=== PATIENT | male | born 1985 | race Hispanic/Latino ===

== ENCOUNTER 2017-08-03 22:36 | Emergency (ER) | payer OTHER ==
[~2017-08-03] VITALS: Ht 162.6 cm; Wt 138.3 kg
[~2017-08-03 22:36] MED LIST: AMLODIPINE BESY10 MG PO; ASPIRIN81 MG PO; CEFUROXIME250 MG PO; CELEBREX100 MG PO; CIPRO500 MG PO; CYCLOBENZAPRINE5 MG PO; HYDROCODONE-ACE15 M2 PO; XANAX0.5 MG PO; XANAX1 MG PO
[2017-08-04 02:02] VITALS: BP 167/86
== END 2017-08-04 02:04 | disposition home or self-care (01) ==
LOC: ER 22:36
DX: R42 Dizziness and giddiness (principal); E86.0 Dehydration
CPT/HCPCS: 93005; 99282

== ENCOUNTER 2017-08-27 21:58 | Emergency (ER) | payer OTHER ==
[~2017-08-27] VITALS: Ht 157.5 cm; Wt 122.5 kg
[2017-08-27] MEDS ORDERED: KETOROLAC TROMETHAMINE 30 MG/ML VIAL IV STA (22:25)
[2017-08-27] MEDS ORDERED: ONDANSETRON HCL INJ 2 MG/ML VIAL IV STA (22:25)
[2017-08-27] MEDS ORDERED: MECLIZINE HCL 12.5 MG TAB PO ONE (22:30)
[2017-08-27 23:48] VITALS: BP 145/70
== END 2017-08-27 23:30 | disposition home or self-care (01) ==
LOC: FSED 21:58
DX: R42 Dizziness and giddiness (principal); H81.11 Benign paroxysmal vertigo, right ear; I10 Essential (primary) hypertension
CPT/HCPCS: 96374; 99283; J1885; J2405

== ENCOUNTER 2018-10-31 18:32 | Emergency (ER) | payer SELFPAY ==
[~2018-10-31] VITALS: Ht 157.5 cm; Wt 122.5 kg
[2018-10-31] MEDS ORDERED: SODIUM CHLORIDE 0.9% 1000ML 1,000 ML IV STA (18:55)
[2018-10-31] MEDS ORDERED: MORPHINE SULFATE INJ 4 MG/ML INJ 1ML IV ONE (19:15)
[2018-10-31] MEDS ORDERED: ONDANSETRON HCL INJ 2MG/ML 2ML 2 MG/ML VIAL IV ONE (19:15)
[2018-10-31] MEDS ORDERED: HYDRALAZINE HCL 20 MG/ML VIAL IV ONE (19:30)
[2018-10-31 20:53] LABS: BASOPHILS # (AUTO) 0.1 (0.0-0.1); BASOPHILS % 1.4 % (0.0-1.0); EOSINOPHILS # (AUTO) 0.4 (0.0-0.4); EOSINOPHILS % 6.3 % (0.0-6.0); HEMATOCRIT 52.3 % (38.2-49.6); HEMOGLOBIN 17.7 g/dL (14.0-18.0); LYMPHOCYTES # (AUTO) 1.7 (1.0-3.2); LYMPHOCYTES % 28.9 % (18.0-39.1); MEAN CORPUSCULAR HGB CONC 33.8 g/dL (31-35); MEAN CORPUSCULAR VOLUME 88.6 fL (81-99); MONOCYTES # (AUTO) 0.4 (0.2-0.8); MONOCYTES % 7.5 % (4.4-11.3); NEUTROPHILS # (AUTO) 3.3 (2.1-6.9); NEUTROPHILS % 55.4 % (38.7-80.0); PLATELET COUNT 286 x10e3/uL (140-360); RED CELL DISTRIBUTION WIDTH 13.7 % (11.7-14.4)
[2018-10-31 21:08] LABS: ALANINE AMINOTRANSFERASE 132 IU/L (0-55); ALBUMIN 4.2 g/dL (3.5-5.0); ALKALINE PHOSPHATASE 118 IU/L (40-150); ANION GAP 17.1 mmol/L (8-16); BLOOD UREA NITROGEN 6 mg/dL (7-26); BUN/CREATININE RATIO 7 (6-25); CALCIUM 9.7 mg/dL (8.4-10.2); CARBON DIOXIDE 26 mmol/L (22-29); CHLORIDE 98 mmol/L (98-107); CREATININE, SERUM 0.87 mg/dL (0.72-1.25); EST GLOMERULAR FILTRATION RATE > 60 ML/MIN (60-); GLUCOSE 88 mg/dL (74-118); LIPASE 28 U/L (8-78); POTASSIUM 3.1 mmol/L (3.5-5.1); SODIUM 138 mmol/L (136-145)
[2018-10-31 21:09] LABS: CLARITY,URINE CLEAR (CLEAR); COLOR,URINE YELLOW (YELLOW)
[2018-10-31 21:10] LABS: BILIRUBIN,URINE NEGATIVE (NEGATIVE); KETONES,URINE NEGATIVE (NEGATIVE); LEUKOCYTE ESTERASE ,URINE TRACE (NEGATIVE); NITRITE,URINE NEGATIVE (NEGATIVE); PROTEIN,URINE DIPSTICK NEGATIVE (NEGATIVE); URINE UROBILINOGEN 0.2 mg/dL (0.2 - 1)
[2018-10-31] MEDS ORDERED: SODIUM CHLORIDE 0.9% 50ML 50 ML ONE (21:17)
[2018-10-31] MEDS ORDERED: IOPAMIDOL 370 MG/ML 200 ML INFUS..BTL INJ ONE (21:17)
[2018-10-31 21:19] LABS: BACTERIA,URINE RARE /HPF; RBC,URINE 0-5 /HPF (0-5); WBC,URINE (MAN) 0-5 /HPF (0-5)
--- NOTE | 2018-10-31 22:10 | Diagnostic Imaging Report ---
EXAM: CT Abdomen and Pelvis WITH contrast INDICATION: r/o divertic c/o luq pain COMPARISON: Gallbladder ultrasound 02/17/2017 TECHNIQUE: Abdomen and pelvis were scanned utilizing a multidetector helical scanner from the lung base to the pubic symphysis after administration of IV contrast. Coronal and sagittal reformations were obtained. Routine protocol was performed. Scan was performed when during portal venous phase. IV CONTRAST: 100 mL of Isovue-370. ORAL CONTRAST: Water COMPLICATIONS: None RADIATION DOSE: Total DLP: 959.1 mGy*cm Estimated effective dose: (DLP x 0.015 x size factor) mSv Dose modulation, iterative reconstruction, and/or weight based adjustment of the mA/kV was utilized to reduce the radiation dose to as low as reasonably achievable. FINDINGS: LINES and TUBES: None. LOWER THORAX: Unremarkable HEPATOBILIARY: Hepatic steatosis. No focal hepatic lesions. No biliary ductal dilation. GALLBLADDER: Cholecystectomy SPLEEN: No splenomegaly. PANCREAS: No focal masses or ductal dilatation. ADRENALS: No adrenal nodules KIDNEYS/URETERS: Scarring in the mid/inferior right renal pole. Kidneys enhance symmetrically. No hydronephrosis. No solid mass lesions. No stones. GI TRACT: No abnormal distention, wall thickening, or evidence of bowel obstruction. Appendix is normal. PELVIC ORGANS/BLADDER: Unremarkable. LYMPH NODES: No lymphadenopathy. VESSELS: Unremarkable. PERITONEUM / RETROPERITONEUM: No free air or fluid. BONES: Unremarkable. SOFT TISSUES: Unremarkable. IMPRESSION: 1. No acute abnormalities. 2. Hepatic steatosis. 3. Cholecystectomy. 4. Right renal scarring. Signed by: DR. Jeffrey Alex MD on 10/31/2018 10:07 PM
[2018-10-31 22:56] VITALS: BP 162/84
== END 2018-10-31 23:10 | disposition home or self-care (01) ==
LOC: ER 18:32
DX: R10.12 Left upper quadrant pain (principal)
CPT/HCPCS: 36415; 74177; 80053; 81001; 83690; 85025; 87086; 96374; 96375; 99284; J0360; J2270; J2405; J7030; Q9967

== ENCOUNTER 2019-03-11 13:18 | Emergency (ER) | payer OTHER ==
[~2019-03-11] VITALS: Ht 157.5 cm; Wt 122.5 kg
--- OUTSIDE RECORDS SUMMARY | 2019-03-11 13:22 | XMS REPORT ---
Author Author [facility] Address Unknown Phone Unavailable Care Team Providers Care Program Services Planner Name Role Phone Cliff ROBBINS Unavailable Unavailable Problems This patient has no known problems. Allergies, Adverse Reactions, Alerts This patient has no known allergies or adverse reactions. Medications This patient has no known medications. Results Test Description Test Time Test Comments Text Results Atomic Results Result Comments CT ABDOMEN/PELVIS W 2018-10-31 21:59:00 [place] [address] Patient Name: MARIO DELACRUZ MR #: [id number] : 1985 Age/Sex: 32/M Req #: [id number] [facility] Physician: Ordered by: JAQUELINE COLLAZO [employer] Report #: [id number] Location: ER Room/Bed: Procedure: [id number] CT/CT ABDOMEN/PELVIS W Exam Date: 10/31/18 Exam Time: 2130 REPORT STATUS: Signed EXAM: CT Abdomen and Pelvis WITH contrast INDICA TION: r/o divertic c/o luq pain COMPARISON: Gallbladder ultrasound 02/17/2017 TECHNIQUE: Abdomen and pelvis were scanned utilizing a multidetector helical scanner from the lung base to the pubic symphysis after administration of IV contrast. Coronal and sagittal reformations were obtained. Routine protocol was performed. Scan was performed when during portal venous phase. IV CONTRAST: 100 mL of Isovue-370. ORAL CONTRAST: Water COMPLICATIONS: None RADIATION DOSE: Total DLP: 959.1 mGy*cm Estimated effective dose: (DLP x 0.015 x size factor) mSv Dose modulation, iterative reconstruction, and/or weight based adjustment of the mA/kV was utilized to reduce the radiation dose to as low as reasonably achievable. FINDINGS: LINES and TUBES: None. LOWER THORAX: Unremarkable HEPATOBILIARY: Hepatic steatosis. No focal hepatic lesions. No biliary ductal dilation. GALLBLADDER: Cholecystectomy SPLEEN: No splenomegaly. PANCREAS: No focal masses or ductal dilatation. ADRENALS: No adrenal nodules KIDNEYS/URETERS: Scarring in the mid/inferior right renal pole. Kidneys enhance symmetrically. No hydronephrosis. No solid mass lesions. No stones. GI TRACT: No abnormal distention, wall thickening, or evidence of bowel obstruction. Appendix is normal. PELVIC ORGANS/BLADDER: Unremarkable. LYMPH NODES: No lymphadenopathy. VESSELS: Unremarkable. PERITONEUM / RETROPERITONEUM: No free air or fluid. BONES: Unremarkable. SOFT TISSUES: Unremarkable. IMPRESSION: 1. No acute abnormalities. 2. Hepatic steatosis. 3. Cholecystectomy. 4. Right renal scarring. Signed by: DR. Jeffrey Francois MD on 10/31/2018 10:07 PM Dictated By: JEFFREY FRANCOIS MD 06 Transcribed By: JIMMY on 10/31/182206 COPY TO: JAQUELINE COLLAZO NP
[2019-03-11] MEDS ORDERED: DIAZEPAM 5 MG TAB PO ONE (14:30)
== END 2019-03-11 15:06 | disposition home or self-care (01) ==
LOC: ER 13:18
DX: F41.1 Generalized anxiety disorder (principal); I10 Essential (primary) hypertension; E66.9 Obesity, unspecified
CPT/HCPCS: 93005; 99283

== ENCOUNTER 2021-01-29 13:05 | Emergency (ER) | payer OTHER ==
[~2021-01-29] VITALS: Ht 162.6 cm; Wt 139.3 kg
== END 2021-01-29 14:27 | disposition home or self-care (01) ==
LOC: FSED 13:30
DX: R06.02 Shortness of breath (principal); C50.929 Malignant neoplasm of unspecified site of unspecified male breast; I10 Essential (primary) hypertension; F41.9 Anxiety disorder, unspecified; M54.9 Dorsalgia, unspecified; G89.29 Other chronic pain; E66.01 Morbid (severe) obesity due to excess calories; Z87.891 Personal history of nicotine dependence
CPT/HCPCS: 71046; 80053; 83880; 85025; 85379; 99283